=== PATIENT | male | born 1940 | race Caucasian/White ===

== ENCOUNTER → 2019-06-12 | Outpatient (CLI) | payer MEDICARE, BC, OTHER ==
--- NOTE | 2019-06-12 17:51 | CARDNUC ---
[place] [address] CARDIAC NUCLEAR IMAGING REPORT Name: TRISTIN LYNCH Room: [facility]#: [id number] Admission: 06/12/19 Attend Phys: Ángel Ko Discharge: Date of : 38 Date of Service: 06/12/19 1751 Report #: [id number] THIS REPORT FOR: //name// APPROVED REPORT Study performed: 06/12/2019 07:30:00 Indication: CAD s/p PCI Patient Location: Out-Patient Stress Tech: Franci Moore Stress Nurse: Lisa Prieto RN Ht: 5 ft 10 in Wt: 184 lbs BSA: 2.02 m2 BMI: 26.39 Medical History Medical History: Angina, CAD s/p stent, HTN, Hyperlipidemia, Valvular heart disease/Aortic stenosis, HX SVT. Medications: Amlodipine, ASA 81 Mg, Elanapril, Zetia, HCTZ, Metoprolol, NTG, Colestipol. Allergies: Clonidine. Cardiac Risk Factors: Age, FHX of CAD, HTN, Hyperlipidemia, Aortic Valve Stenosis. Previous Cardiac Procedures: PCI, Nonrhumatic Aortic Valve Stenosis. Pretest Chest Pain Characteristics: No chest pain Exercise History: Physically active Physical Disabilities: None Meds Held (24 hrs): Metoprolol, NTG. Resting Data Rest SPECT myocardial perfusion imaging was performed in supine position 30 minutes following the intravenous injection of 11.0 mCi of Tc-99m Sestamibi. Time of rest injection: 08:00 The images were gated to evaluate regional wall motion and calculate left ventricular ejection fraction. Administration Route: IV Administration Site: Right Hand Exercise Stress At peak stress, the patient was injected intravenously with 35.2mCi of Tc-99m Sestamibi. Time of stress injection: 09:30 Administration Route: [place] [address] CARDIAC NUCLEAR IMAGING REPORT Name: TRISTIN LYNCH Room: [facility]#: [id number] Admission: 06/12/19 Attend Phys: Ángel Ko Discharge: Date of : 38 Date of Service: 06/12/19 175 Report #: [id number] Administration Site: Right Hand Heart Rate at time of stress injection: 129 bpm. Patient continued to exercise for 1 minute(s). Gated Stress SPECT was performed 30 minutes after stress injection. The images were gated to evaluate regional wall motion and calculate left ventricular ejection fraction. Prone imaging was performed. Stress Test Details Stress Test: Exercise stress testing was performed using a Edmundo protocol. HR Max Heart Rate (APMHR): 140 bpm Resting HR: 59 bpm Target HR (85% APMHR): 119 bpm Max HR Achieved: 135 bpm % of APMHR: 96 Recovery HR: 78 bpm HR response to stress: Normal HR response to stress BP Resting BP: 177/86 mmHg Max BP: 223/105 mmHg Recovery BP: 170/76 mmHg BP response to stress: Normal blood pressure response to stress. ECG Resting ECG: Sinus Rhythm Stress ECG: Sinus Tachycardia ST Change: None Arrhythmia: VPC's Recovery ECG: Sinus Rhythm Recovery ST Change: None Recovery Arrhythmia: None Clinical Reason for Termination: Maximal effort, Target HR achieved. Stress Symptoms: Dyspnea. Exercise duration: 5 min 56 sec Exercise capacity: 7.05 METs Overall Exercise Capacity for Age: Normal The patient tolerated standard Edmundo protocol exercise without significant symptoms. Nurse Comments 79 year old male presented s/p PCI, HX of SVT and [place] [address] CARDIAC NUCLEAR IMAGING REPORT Name: TRISTIN LYNCH Room: [facility]#: [id number] Admission: 06/12/19 Attend Phys: Ángel Ko Discharge: Date of : 38 Date of Service: 06/12/19 1751 Report #: [id number] Valve Stenosis. Patient tolerated Edmundo Protocol Nuclear Stress Test well. Recovery unremarkable. Patient escorted to Nuclear Medicine for images. Patient was stable with no complaints at that time. Stress ECG Conclusion The baseline 12-lead EKG shows sinus rhythm with no significant ST or T wave abnormality. EKGs obtained during and post exercise showed sinus rhythm and sinus tachycardia with no significant ST or T wave changes when compared to baseline. The patient had unifocal premature ventricular contractions during and post exercise. Study Quality Study: Good Artifact: Mild Diaphragmatic artifact Study Data At rest, the left ventricular ejection fraction was 64%.. Post stress, the left ventricular ejection was 60%.. TID = 0.95. Perfusion Myocardial perfusion images obtained in the supine position at rest and post exercise stress show mild photopenia in the inferior wall that resolves completely with post stress prone imaging suggesting diaphragmatic attenuation artifact. No other significant defects were identified. Wall Motion Normal left ventricular wall motion. Nuclear Conclusion ECG Findings: negative for ischemia Clinical Findings: negative for ischemia Nuclear Findings: negative for ischemia Exercise Capacity: fair Left Ventricular Function: normal Risk Study: low Myocardial perfusion images show no defect to suggest infarct or ischemia. Left ventricular systolic function is normal on gated studies. This is a low risk study. <Conclusion> The baseline 12-lead EKG shows sinus rhythm with no significant ST or T wave abnormality. EKGs obtained during and post exercise showed sinus rhythm and sinus tachycardia with no significant ST or T [place] [address] CARDIAC NUCLEAR IMAGING REPORT Name: TRISTIN LYNCH [id number] Admission: 06/12/19 Attend Phys: Ángel Ko Discharge: Date of : 38 Date of Service: 06/12/19 1751 Report #: [id number] changes when compared to baseline. The patient had unifocal premature ventricular contractions during and post exercise. <ELECTRONICALLY SIGNED> By: Ezekiel Jimenez MD, FACC 06/12/191750 50 50 Ezekiel Jimenez MD, FACC /INF
== END ==
LOC: M.NUC 01-19 14:41
DX: I25.10 Atherosclerotic heart disease of native coronary artery without angina pectoris (principal); I10 Essential (primary) hypertension; E78.5 Hyperlipidemia, unspecified; I49.3 Ventricular premature depolarization; Z98.61 Coronary angioplasty status; Z79.899 Other long term (current) drug therapy; Z88.8 Allergy status to other drugs, medicaments and biological substances; Z86.79 Personal history of other diseases of the circulatory system

== ENCOUNTER → 2020-01-09 | Outpatient (CLI) | payer MEDICARE, BC, OTHER ==
--- NOTE | 2020-01-09 14:34 | 2DMMODE ---
[place] [address] 2 D/M-MODE ECHOCARDIOGRAM Name: TRISTIN LYNCH Room: [facility]#: [id number] Admission: 01/09/20 Attend Phys: Ángel Ko Discharge: Date of : 38 Date of Service: 01/09/20 1433 Report #: [id number] THIS REPORT FOR: cc: Jesús Quintero Steve T. DO Liston, Michael J. MD [facility] ~ APPROVED REPORT Study performed: 01/09/2020 10:45:02 EXAM: Comprehensive 2D, Doppler, and color-flow Echocardiogram Patient Location: Out-Patient BSA: 2.00 HR: 60 bpm BP: 146/72 mmHg Other Information Study Quality: Good Indications Aortic Valve Disease CAD Hypertension/HDD 2D Dimensions IVSd: 11.35 (7-11mm) LVOT Diam: 20.40 (18-24mm) LVDd: 49.97 mm PWd: 9.71 (7-11mm) Ascending Ao: 33.41 (22-36mm) LVDs: 32.40 (25-40mm) Aortic Root: 24.45 mm Volumes Left Atrial Volume (Systole) LA ESV Index: 23.80 mL/m2 Aortic Valve AoV Peak Salazar.: 1.76 m/s AO Peak Gr.: 12.39 mmHg LVOT Max P.73 mmHg AO Mean Gr.: 7.17 mmHg LVOT Mean P.85 mmHg LVOT Max V: 0.97 m/s AO V2 VTI: 44.81 cm LVOT Mean V: 0.63 m/s MONTRELL (VTI): 1.84 cm2 LVOT V1 VTI: 25.27 [place] [address] 2 D/M-MODE ECHOCARDIOGRAM Name: TRISTIN LYNCH Room: [facility]#: [id number] Admission: 01/09/20 Attend Phys: Ángel Ko Discharge: Date of : 38 Date of Service: 01/09/20 1433 Report #: [id number] Mitral Valve E/A Ratio: 0.67 MV Decel. Time: 194.76 ms MV E Max Salazar.: 0.66 m/s MV PHT: 56.48 ms MVA (PHT): 3.90 cm2 TDI E/Lateral E': 7.33 E/Medial E': 11.00 Medial E' Salazar.: 0.06 m/s Lateral E' Salazar.: 0.09 m/s Pulmonary Valve PV Peak Salazar.: 0.92 m/s PV Peak Gr.: 3.39 mmHg Tricuspid Valve RAP Estimate: 5.00 mmHg TR Peak Gr.: 17.68 mmHg RVSP: 22.68 mmHg PA Pressure: 22.68 mmHg Left Ventricle The left ventricle is normal size. There is normal LV segmental wall motion. There is normal left ventricular wall thickness. Left ventricular systolic function is normal. LVEF is 55-60%. Grade I - abnormal relaxation pattern. Right Ventricle The right ventricle is normal size. The right ventricular systolic function is normal. Atria The left atrium size is normal. The right atrium size is normal. Aortic Valve Aortic valve is mildly calcified. No aortic regurgitation is present. Mild aortic stenosis. Mitral Valve The mitral valve is normal in structure. There is no mitral valve regurgitation noted. No evidence of mitral valve stenosis. Tricuspid Valve The tricuspid valve is normal in structure. Mild tricuspid regurgitation. [place] [address] 2 D/M-MODE ECHOCARDIOGRAM Name: TRISTIN LYNCH Room: [facility]#: [id number] Admission: 01/09/20 Attend Phys: Ángel Ko Discharge: Date of : 38 Date of Service: 01/09/20 1433 Report #: [id number] Pulmonic Valve The pulmonary valve is normal in structure. There is no pulmonic valvular regurgitation. Great Vessels The aortic root is normal in size. IVC is not well visualized. Pericardium There is no pericardial effusion. <Conclusion> The left ventricle is normal size. There is normal left ventricular wall thickness. Left ventricular systolic function is normal. LVEF is 55-60%. Grade I - abnormal relaxation pattern. Aortic valve is mildly calcified. Mild aortic stenosis. Mild tricuspid regurgitation. No pulmonary hypertension. <ELECTRONICALLY SIGNED> By: Ezekiel Jimenez MD, FACC 01/09/20 1433 1433 1433 Ezekiel Jimenez MD, FACC /INF
== END ==
LOC: M.CRD 10:00
DX: I08.2 Rheumatic disorders of both aortic and tricuspid valves (principal); I25.10 Atherosclerotic heart disease of native coronary artery without angina pectoris; I10 Essential (primary) hypertension

== ENCOUNTER → 2021-01-14 | Outpatient (CLI) | payer MEDICARE, BC ==
--- NOTE | 2021-01-14 19:22 | 2DMMODE ---
[place] [address] 2 D/M-MODE ECHOCARDIOGRAM Name: TRISTIN LYNCH Room: [facility]#: [id number] Admission: 01/14/21 Attend Phys: Ángel Ko Discharge: Date of : 38 Date of Service: 01/14/211921 Report #: [id number] THIS REPORT FOR: cc: Jesús Quintero Steve T. DO Liston, Michael J. MD [facility] ~ APPROVED REPORT Study performed: 01/14/2021 12:38:27 EXAM: Comprehensive 2D, Doppler, and color-flow Echocardiogram Patient Location: Out-Patient BSA: 1.97 HR: 65 bpm BP: 110/70 mmHg Other Information Study Quality: Good Indications CAD Hypertension/HDD 2D Dimensions IVSd: 11.31 (7-11mm) LVOT Diam: 19.97 (18-24mm) LVDd: 47.30 mm PWd: 10.31 (7-11mm) Ascending Ao: 30.18 (22-36mm) LVDs: 30.81 (25-40mm) Aortic Root: 30.67 mm Volumes Left Atrial Volume (Systole) LA ESV Index: 25.10 mL/m2 Aortic Valve AoV Peak Salazar.: 2.05 m/s AO Peak Gr.: 16.81 mmHg LVOT Max P.36 mmHg AO Mean Gr.: 9.46 mmHg LVOT Mean P.68 mmHg LVOT Max V: 0.92 m/s AO V2 VTI: 48.93 cm LVOT Mean V: 0.60 m/s MONTRELL (VTI): 1.55 cm2 LVOT V1 VTI: 24.15 [place] [address] 2 D/M-MODE ECHOCARDIOGRAM Name: TRISTIN LYNCH Room: [facility]#: [id number] Admission: 01/14/21 Attend Phys: Ángel Ko Discharge: Date of : 38 Date of Service: 01/14/211921 Report #: [id number] E/A Ratio: 0.75 MV Decel. Time: 157.47 ms MV E Max Salazar.: 0.73 m/s MV PHT: 45.67 ms MVA (PHT): 4.82 cm2 TDI E/Lateral E': 8.11 E/Medial E': 10.43 Medial E' Salazar.: 0.07 m/s Lateral E' Salazar.: 0.09 m/s Pulmonary Valve PV Peak Salazar.: 0.97 m/s PV Peak Gr.: 3.80 mmHg Tricuspid Valve RAP Estimate: 5.00 mmHg TR Peak Gr.: 21.12 mmHg RVSP: 26.12 mmHg PA Pressure: 26.12 mmHg Left Ventricle The left ventricle is normal size. There is normal LV segmental wall motion. There is normal left ventricular wall thickness. Left ventricular systolic function is normal. LVEF is 55-60%. Grade I - abnormal relaxation pattern. Right Ventricle The right ventricle is normal size. The right ventricular systolic function is normal. Atria The left atrium size is normal. The right atrium size is normal. Aortic Valve The Aortic valve is sclerotic. No aortic regurgitation is present. Mild to moderate aortic stenosis. Mitral Valve The mitral valve is normal in structure. There is no mitral valve regurgitation noted. No evidence of mitral valve stenosis. Tricuspid Valve The tricuspid valve is normal in structure. Mild tricuspid regurgitation. No pulmonary hypertension[place] [address] 2 D/M-MODE ECHOCARDIOGRAM Name: TRISTIN LYNCH Room: [facility]#: [id number] Admission: 01/14/21 Attend Phys: Ángel Ko Discharge: Date of : 38 Date of Service: 01/14/211921 Report #: [id number] The pulmonary valve is normal in structure. There is no pulmonic valvular regurgitation. Great Vessels The aortic root is normal in size. IVC is normal in size and collapses >50% with inspiration. Pericardium There is no pericardial effusion. <Conclusion> The left ventricle is normal size. There is normal left ventricular wall thickness. Left ventricular systolic function is normal. LVEF is 55-60%. Grade I - abnormal relaxation pattern. The Aortic valve is sclerotic. Mild to moderate aortic stenosis. Mild tricuspid regurgitation. No pulmonary hypertension. <ELECTRONICALLY SIGNED> By: Ezekiel Jimenez MD, FACC 01/14/211921 21 21 Ezekiel Jimenez MD, FACC /INF
== END ==
LOC: M.CRD 03:23
PROVIDERS: ATTEND Internal Medicine
DX: I08.2 Rheumatic disorders of both aortic and tricuspid valves (principal); I25.10 Atherosclerotic heart disease of native coronary artery without angina pectoris; I10 Essential (primary) hypertension